=== PATIENT | male | born 1935 | race Caucasian/White ===

== ENCOUNTER 2020-03-18 09:15 | Day surgery (SDC) | payer MEDICARE ==
[2020-03-17 13:37] VITALS: BMI 26.9
[2020-03-18] MEDS ORDERED: AFRIN NASAL MIST 15 ML BOT ONE ×2 (09:24→10:50)
[2020-03-18 10:42] LABS: Anion Gap 15 mmol/L (10-20); BUN (Urea Nitrogen) 51 mg/dL (8.4-25.7); Calc. Creatinine Clearance 29 mL/min (70-130); Calcium 8.8 mg/dL (7.8-10.44); Carbon Dioxide 22 mmol/L (23-31); Chloride 109 mmol/L (98-107); Glucose 74 mg/dL (83-110); Potassium 3.9 mmol/L (3.5-5.1); Sodium 142 mmol/L (136-145)
[2020-03-18] MEDS ORDERED: Lidocaine 1% w/Epinephrine 1:100K 20 ML VIAL ONE (10:50)
[2020-03-18] MEDS ORDERED: SUGAMMADEX SODIUM 200 MG/2 ML VIAL ONE (10:53)
[2020-03-18] MEDS ORDERED: Fentanyl 100 MCG/2 ML VIAL ONE ×2 (10:53→12:32)
[2020-03-18] MEDS ORDERED: PROPOFOL 200 MG/20 ML VIAL ONE (11:14)
[2020-03-18] MEDS ORDERED: Dexamethasone 20 MG/5 ML VIAL ONE (11:14)
[2020-03-18] MEDS ORDERED: Ondansetron PF 4 MG/2 ML Vial ONE (11:14)
[2020-03-18] MEDS ORDERED: ePHEDrine 50 MG/ML VIAL ONE (11:14)
[2020-03-18] MEDS ORDERED: Lidocaine 1% PF 5 ML VIAL ONE (11:14)
[2020-03-18] MEDS ORDERED: Rocuronium Bromide 10 MG/ML (10ML VIAL) ONE (11:14)
[2020-03-18] MEDS ORDERED: Sodium Chloride 0.9% 10 ML ONE (12:37)
[2020-03-18] MEDS ORDERED: Hydrocodone-Acetamin 15 ML UDCUP ONE (13:03)
[2020-03-18] MEDS ORDERED: HYDROcodone/Acetaminophen 5/325 mg Tablet ONE (13:05)
--- NOTE | 2020-03-19 08:21 | OP ---
DATE OF PROCEDURE: 03/18/2020 PREOPERATIVE DIAGNOSES: Chronic sinusitis, deviated septum, hypertrophic inferior turbinates, and chronic frontal sinusitis in particular chronic maxillary sinusitis. PROCEDURES PERFORMED: 1. Bilateral nasal endoscopy with maxillary antrostomy. 2. 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 3. Bilateral nasal endoscopy with anterior ethmoidectomy. 4. Bilateral nasal endoscopy with frontal sinusotomy. 5. Septoplasty. DESCRIPTION OF PROCEDURE: Bilateral nasal endoscopy with maxillary antrostomy: The uncinate was then identified and the extent of the uncinate was appreciated by out-fracturing the uncinate with the ball-tip probe. We then used the sickle blade to disarticulate the uncinate from the lateral nasal wall. This was then removed with straight biting and upbiting punches with the remaining shrouds of mucosa and bony septum removed with the micro-debrider. The natural os of the maxillary sinus was then identified and enlarged with the maxillary punches and back biting forceps. 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 The lateral aspect of the naveen bullosa was meticulously resected while leaving the medial most aspect to form the new middle turbinate. Attention was made not to violate the mucosa. The straight biting punches and micro-debrider were used to remove shrouds of mucosa and bony debris. Bilateral nasal endoscopy with anterior ethmoidectomy: The anterior face of the ethmoid bulla was entered and with the micro-debrider, dissection continued posteriorly to the ground lamella. The limits of dissection included the insertion of the middle turbinate, medial orbital wall, and base of skull. We similarly identified the frontal recess and removed shrouds of bone and debris in that region to obtain patency into the agger nasi region and frontal recess. We then entered the ground lamella and its anteroinferior aspect and proceeded posteriorly, opening the posterior ethmoid air-cell system. Again, the limits of dissection included the base of skull and medial orbital wall. Bilateral nasal endoscopy with frontal sinusotomy: Following the ethmoidectomy, we then turned our attention to the frontal nasal recess. The agger nasi cells were addressed and the frontal recess was exposed. The natural opening to the frontal sinus was identified. At this point, any obstructing shrouds of mucosa and bony fragments were removed with a curved microdebrider. The wound was then examined and found to be free of any obstructing debris. We then turned our attention to the contralateral side and performed a similar procedure again under endoscopic visualization using a 45-degree scope. We were able to visualize the frontal recess. Obstructing shrouds of mucosa and bone were removed with a microdebrider. The natural os of frontal sinus was identified and enlarged and irrigated. At this point, the frontal sinusotomy was completed and we turned to the next area of concern. Septoplasty: After local anesthesia was infiltrated into the submucoperichondrial plane, a standard Isaías incision was made with a #15 blade down to the level of the septal cartilage. The caudal elevator was used to elevate the mucoperichondrium from the underlying cartilage. We then proceeded beyond the bony cartilaginous junction and elevated the bony periosteum as well. Great attention was paid to the spur to prevent rent formation in the septal flap. A transcartilaginous incision was then made, while preserving an adequate dorsal and caudal cartilaginous strut for tip support. The deformed cartilage was removed and disarticulated from the bony cartilaginous junction and maxillary crest. This was placed in saline and would later be crushed and returned to the mucoperichondrial envelope. We then elevated the contralateral periosteum from the bony cartilaginous region and removed the deformed portions of the bone and bony spurs. The cartilage was then crushed and placed back into the mucoperichondrial envelope and the mucosa was re-approximated with a quilting stitch composed of rapidly absorbent gut suture. The Isaías incision was also closed with interrupted gut suture. At the completion of the case, Quiñonez splints were placed and suture secured to the caudal septum. Job ID: [id number]
== END 2020-03-18 14:10 | disposition home or self-care (01) ==
LOC: SDC 09:15
PROVIDERS: ATTEND Specialist
PROC: 099R8ZZ Drainage of Left Maxillary Sinus, Via Natural or Artificial Opening Endoscopic (ICD-10-PCS; principal; 2020-03-18)
PROC: 099Q8ZZ Drainage of Right Maxillary Sinus, Via Natural or Artificial Opening Endoscopic (ICD-10-PCS; 2020-03-18)
PROC: 09BT8ZZ Excision of Left Frontal Sinus, Via Natural or Artificial Opening Endoscopic (ICD-10-PCS; 2020-03-18)
PROC: 09BS8ZZ Excision of Right Frontal Sinus, Via Natural or Artificial Opening Endoscopic (ICD-10-PCS; 2020-03-18)
PROC: 09BV8ZZ Excision of Left Ethmoid Sinus, Via Natural or Artificial Opening Endoscopic (ICD-10-PCS; 2020-03-18)
PROC: 09BU8ZZ Excision of Right Ethmoid Sinus, Via Natural or Artificial Opening Endoscopic (ICD-10-PCS; 2020-03-18)
PROC: 09BM8ZZ Excision of Nasal Septum, Via Natural or Artificial Opening Endoscopic (ICD-10-PCS; 2020-03-18)
DX: J32.8 Other chronic sinusitis (principal); J34.2 Deviated nasal septum; J34.3 Hypertrophy of nasal turbinates; J01.40 Acute pansinusitis, unspecified; H61.23 Impacted cerumen, bilateral; I12.9 Hypertensive chronic kidney disease with stage 1 through stage 4 chronic kidney disease, or unspecified chronic kidney disease; N18.9 Chronic kidney disease, unspecified; E11.9 Type 2 diabetes mellitus without complications; N40.0 Benign prostatic hyperplasia without lower urinary tract symptoms; Z79.4 Long term (current) use of insulin; Z79.899 Other long term (current) drug therapy
CPT/HCPCS: 36415; 80048; 85014; 85018; 93005; 93010; J1100; J2405; J2704; J3010; J3490